=== PATIENT | male | born 1990 | race Caucasian/White ===

== ENCOUNTER 2020-01-24 21:53 | Emergency (ER) | payer OTHER ==
--- NOTE | 2020-01-24 23:08 | ED Physician Documentation ---
History of Present Illness - Stated complaint Stated Complaint: SWOLLEN FOOT/ - Chief complaint Chief Complaint: Trauma Ext - History obtained from History obtained from: Patient - Additonal information Additional information: Patient comes emergency department complaining of increasing right medial ankle pain and swelling since being hit over the medial malleolus with a skateboard about a week ago. Patient states it hurt initially, but he was able to walk on it. He did notice a "pop" when the injury occurred. He states that over the ensuing days, he did develop some swelling and pain across the medial and anterior aspects of the ankle. He has been able to walk, but states it does hurt. He states he has pain in the ankle at night and that it has kept him awake sometimes. He states this is the main reason he is here. 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 No other injuries and no other complaints at this time. Review of Systems Ten Systems: 10 systems reviewed and negative Constitutional: reports: Reviewed and negative Eyes: reports: Reviewed and negative Ears: reports: Reviewed and negative Nose: reports: Reviewed and negative Throat: reports: Reviewed and negative Cardiac: reports: Reviewed and negative Respiratory: reports: Reviewed and negative GI: reports: Reviewed and negative : reports: Reviewed and negative Skin: reports: Reviewed and negative Musculoskeletal: reports: Joint pain, Joint swelling Neurologic: reports: Reviewed and negative Psychiatric: reports: Reviewed and negative Endocrine: reports: Reviewed and negative Immunocompromised: reports: Reviewed and negative PD PAST MEDICAL HISTORY - Past Medical History Past Medical History: No - Past Surgical History Past Surgical History: No - Present Medications Home Medications: Ambulatory Orders Medication Instructions Recorded Confirmed No Known Home Medications 01/24/20 01/24/20 - Allergies Allergies/Adverse Reactions: Allergies Allergy/AdvReac Type Severity Reaction Status Date / Time No Known Drug Allergies Allergy Verified 01/24/20 22:03 - Social History Does the pt smoke?: No Smoking Status: Never smoker Does the pt drink ETOH?: Yes ETOH Use: Beer, Liquor Does the pt have substance abuse?: No - Immunizations Immunizations are current?: Yes - POLST Patient has POLST: No PD ED PE NORMAL - Vitals Vital signs reviewed: Yes - General General: Alert and oriented X 3, No acute distress - HEENT HEENT: Atraumatic, PERRL, EOMI, Moist mucous membranes - Neck Neck: Supple, no meningeal sign - Cardiac Cardiac: Strong equal pulses - Respiratory Respiratory: No respiratory distress - Derm Derm: Normal color, Warm and dry, No rash - Extremities Extremities: No deformity, Other (Moderate edema right medial ankle including medial malleolus. No palpable deformity. No gross contusion. Pulses intact. No point Tenderness over anterior or lateral ankle, or foot.) - Neuro Neuro: Alert and oriented X 3 - Psych Psych: Normal mood, Normal affect Results - Vitals Vitals: Vital Signs - 24 hr 01/24/20 01/24/20 01/24/20 22:00 22:05 23:17 Temperature 36.1 C L 36.1 C L 36.2 C L Heart Rate 70 70 71 Respiratory 16 16 16 Rate Blood Pressure 147/68 H 147/68 H 135/66 H O2 Saturation 97 97 100 Oxygen O2 Source Room air - Rads (name of study) R ankle xr Radiology: Final report received, EMP read indepedently, See rad report (STS, no fx) PD MEDICAL DECISION MAKING - ED course Complexity details: reviewed results, re-evaluated patient, considered differential, d/w patient ED course: I discussed with the patient that there is no obvious fracture on x-ray and that his bony alignment is good. The patient has been placed in an air splint and given crutches. It is possible that he is bruised the bone, although I would not expect swelling to go on for this long after the sort of injury. Given that the patient felt a "pop" during the injury, it is possible that he has sustained a sprain, though once again the medial ankle would be a less common location for this. I have advised patient to follow-up with his primary care physician in a week if he is not feeling any better for repeat x-rays. For now, he may weight- bear as tolerated with the ankle brace. Departure - Departure Disposition: 01 Home, Self Care Clinical Impression: Ankle injury Qualifiers: Encounter type: initial encounter Laterality: right Qualified Code(s): S99.911A - Unspecified injury of right ankle, initial encounter Condition: Stable Instructions: ED Sprain Ankle W X Ray Comments: At this time, your x-ray does not show any broken bones. The radiologist has read your x-ray as negative other than the swelling. You have most likely bruised the bone, but you may have also sprained the ankle, given that he felt a "pop" during the injury. This would be a more likely reason for the ongoing swelling. Given the above, it is best that you wear the air splint for at least the next week, or until your ankle is feeling completely better. Use the cr utches as needed. You may weight-bear on the right foot as much as you can tolerate. If you are not feeling better at all in the next week, please see your primary doctor to discuss repeat x-rays. Otherwise, please elevate the leg when not before possible. You may ice the ankle for 30 minutes at a time several times a day to help with the swelling. Please use ibuprofen and Tylenol as needed for pain. Forms: Activity restrictions Discharge Date/Time: 01/24/20 23:17
[2020-01-24 23:19] VITALS: BP 135/66
--- NOTE | 2020-01-25 08:26 | XRAY Report ---
PROCEDURE: Ankle 3 View RT INDICATIONS: injury/skateboarding a wk ago. Swollen TECHNIQUE: 3 views of the ankle were acquired. COMPARISON: None FINDINGS: Bones: No fractures or dislocations. Ankle mortise is normally aligned. No suspicious bony lesions . Soft tissues: No tibiotalar joint effusion. Achilles tendon appears normal. Soft tissue swelling i s noted and ligamentous can be excluded. IMPRESSION: No fracture. No osseous lesion. If there is continued clinical concern for pathology, th en repeat plain film radiographs (7-10 days) or advanced imaging (CT, MR, bone scan) should be consid ered for further evaluation. Reviewed by: Moraima Grajeda MD, PhD on 01/25/2020 8:25 AM PDT Approved by: Moraima Grajeda MD, PhD on 01/25/2020 8:25 AM PDT Station ID: [id number]
== END 2020-01-24 23:17 | disposition home or self-care (01) ==
LOC: ED 21:53
DX: S99.911A Unspecified injury of right ankle, initial encounter (principal); W22.8XXA Striking against or struck by other objects, initial encounter
CPT/HCPCS: 99283; 99284

== ENCOUNTER 2020-03-14 03:52 | Emergency (ER) | payer OTHER ==
--- NOTE | 2020-03-14 03:58 | ED Physician Documentation ---
PD HPI LOWER EXT INJURY - Stated complaint Stated Complaint: LT FOOT PX - History obtained from History obtained from: Patient - History of Present Illness PD HPI LOW EXT INJURY LOCATION: Left, Toe Timing - onset: How many days ago (2) Timing - details: Abrupt onset Pain level now: 7 Improved by: Rest Worsened by: Moving, Palpating Associated symptoms: Swelling, Discolored Similar symptoms before: Other (one previous episode that resolved prior to seeking medical attention although right great toe at that time) Recently seen: Not recently seen Review of Systems Constitutional: denies: Fever Musculoskeletal: reports: Extremity pain, Extremity swelling PD PAST MEDICAL HISTORY - Past Medical History Past Medical History: No - Past Surgical History Past Surgical History: No - Present Medications Home Medications: Ambulatory Orders Medication Instructions Recorded Confirmed Oxycodone HCl/Acetaminophen 1 - 2 each PO Q6H PRN #14 tablet 03/14/20 [Percocet 5-325 mg Tablet] predniSONE [Deltasone] 40 mg PO DAILY #8 tablet 03/14/20 - Allergies Allergies/Adverse Reactions: Allergies Allergy/AdvReac Type Severity Reaction Status Date / Time No Known Drug Allergies Allergy Verified 03/14/20 04:04 - Social History Does the pt smoke?: No Smoking Status: Never smoker Does the pt drink ETOH?: Yes Does the pt have substance abuse?: No - Immunizations Immunizations are current?: Yes - POLST Patient has POLST: No PD ED PE NORMAL - Vitals Vital signs reviewed: Yes - General General: Alert and oriented X 3, No acute distress, Well developed/nourished - Neuro Neuro: No motor deficit, No sensory deficit PD ED PE EXPANDED - Extremities Extremities: Other (minimal swelling, mild erythema, mildly increased warmth to touch (compared to right foot), and exquisite tenderness of left first TMT joint) Feet visual: 1 - rash (mild, poorly-marginated erythema), swelling, tenderness Results - Vitals Vitals: Oxygen O2 Source Room air PD MEDICAL DECISION MAKING - ED course Complexity details: considered differential, d/w patient Departure - Departure Disposition: 01 Home, Self Care Clinical Impression: Gout Qualifiers: Gout site: toe Gout etiology: unspecified cause Chronicity: acute Laterality: left Qualified Code(s): M10.9 - Gout, unspecified Condition: Good Instructions: ED Arthritis Gout, ED Diet Gout Follow-Up: [facility] [Provider Group] Prescriptions: predniSONE [Deltasone] 40 mg PO DAILY #8 tablet Oxycodone HCl/Acetaminophen [Percocet 5-325 mg Tablet] 1 - 2 each PO Q6H PRN #14 tablet PRN Reason: pain Comments: The prescriptions provided include two prescriptions for prednisone; one for 20mg tablets and the other is for 10mg tablets. The dosage should be clearly l abeled on the prescription bottles. Take as follows: START with the prescription for 20mg Prednisone. Take 2 tablets once per day. After completing the 20mg prednisone prescription, THE NEXT DAY start the 10mg prednisone taper according to the label instructions (4 tablets once per day for 3 days, then 2 tablets once per day for 2 days, then 1 tablet once per day for 2 days). Discharge Date/Time: 03/14/20 04:58
[2020-03-14] MEDS ORDERED: oxyCODONE/ACET 5/325 Prepack 4 PO STA (04:22)
[2020-03-14] MEDS ORDERED: predniSONE 20 MG TABLET PO STA (04:22)
[2020-03-14 05:00] VITALS: BP 138/68
== END 2020-03-14 04:58 | disposition home or self-care (01) ==
LOC: ED 03:52
DX: M10.9 Gout, unspecified (principal)
CPT/HCPCS: 99282; 99283; J7512

== ENCOUNTER 2021-02-21 16:42 | Emergency (ER) | payer OTHER ==
[2021-02-21 16:49] VITALS: BP 154/63
[2021-02-21 16:59] LABS: BASOPHILS # (AUTO) 0.1 10^3/uL (0.0-0.1); BASOPHILS % (AUTO) 0.7 %; EOSINOPHILS # (AUTO) 0.1 10^3/uL (0.0-0.7); HCT - HEMATOCRIT 46.8 % (42.0-52.0); HGB - HEMOGLOBIN 16.2 g/dL (14.0-18.0); LYMPHOCYTES # (AUTO) 3.3 10^3/uL (1.5-3.5); LYMPHOCYTES % (AUTO) 34.2 %; MEAN CORPUSCULAR HEMOGLOBIN 29.8 pg (27.0-31.0); MEAN CORPUSCULAR HGB CONC 34.6 g/dL (32.0-36.0); MEAN CORPUSCULAR VOLUME 86.2 fL (80.0-94.0); MEAN PLATELET VOLUME 10.6 fL (7.4-11.4); MONOCYTES # (AUTO) 0.8 10^3/uL (0.0-1.0); MONOCYTES % (AUTO) 7.8 %; NEUTROPHILS # (AUTO) 5.4 10^3/uL (1.5-6.6); PLT - PLATELET COUNT 246 10^3/uL (130-450); RED BLOOD COUNT 5.43 10^6/uL (4.70-6.10); RED CELL DISTRIBUTION WIDTH 12.2 % (12.0-15.0); WHITE BLOOD COUNT 9.6 x10^3/uL (4.8-10.8)
--- NOTE | 2021-02-21 17:04 | ED Physician Documentation ---
History of Present Illness - Stated complaint Stated Complaint: MALE - Chief complaint Chief Complaint: Abd Pain - Additonal information Additional information: 22-year-old male presents emergency department for evaluation of bloody stools. He reports that approximately 1 month ago he had very black stools for 1 to 2 days. However that quickly resolved. Over the last 2 days after he has defecated he has noticed blood streaking on his stools. The stool is brown however with blood streaks. He denies that he is having painful bowel movements or that he is constipated. He is having no fevers abdominal pain or weight loss. He reports that he has had bleeding in his stomach after taking ibuprofen in the past. Does not take ibuprofen now. He rarely drinks. Denies any illicit drug use. Review of Systems Constitutional: denies: Fever, Chills Eyes: reports: Reviewed and negative Nose: reports: Reviewed and negative Throat: reports: Reviewed and negative Cardiac: reports: Reviewed and negative Respiratory: reports: Reviewed and negative GI: reports: Abdominal Pain, Bloody / black stool. denies: Nausea, Vomiting, Constipation, Diarrhea : reports: Reviewed and negative PD PAST MEDICAL HISTORY - Past Surgical History Past Surgical History: No - Present Medications Home Medications: Ambulatory Orders Medication Instructions Recorded Confirmed No Known Home Medications 02/21/21 02/21/21 - Allergies Allergies/Adverse Reactions: Allergies Allergy/AdvReac Type Severity Reaction Status Date / Time No Known Drug Allergies Allergy Verified 02/21/21 16:46 - Social History Does the pt smoke?: No Smoking Status: Never smoker Does the pt drink ETOH?: Yes Does the pt have substance abuse?: No - Immunizations Immunizations are current?: Yes - POLST Patient has POLST: No PD ED PE NORMAL - General General: Alert and oriented X 3, No acute distress - HEENT HEENT: PERRL - Neck Neck: Supple, no meningeal sign - Cardiac Cardiac: RRR, No murmur - Respiratory Respiratory: Clear bilaterally - Male Male : Other (Chaperoned rectal exam. Brown blood in vault. Nontender. No obvious hemorrhoid or anal fissure noted.) - Derm Derm: Normal color, Warm and dry, No rash - Extremities Extremities: No deformity - Neuro Neuro: Alert and oriented X 3 Results - Vitals Vitals: Vital Signs - 24 hr 02/21/21 16:47 Temperature 36.6 C Heart Rate 56 L Respiratory 18 Rate Blood Pressure 154/63 H O2 Saturation 99 Oxygen O2 Source Room air - Labs Labs: Laboratory Tests 02/21/21 02/21/21 16:54 16:54 WBC 9.6 RBC 5.43 Hgb 16.2 Hct 46.8 MCV 86.2 MCH 29.8 MCHC 34.6 RDW 12.2 Plt Count 246 MPV 10.6 Neut # (Auto) 5.4 Lymph # (Auto) 3.3 [place] # (Auto) 0.8 Eos # (Auto) 0.1 Baso # (Auto) 0.1 Absolute Nucleated RBC 0.00 Nucleated RBC % 0.0 Sodium 141 Potassium 4.6 Chloride 101 Carbon Dioxide 31 Anion Gap 9.0 BUN 21 H Creatinine 1.3 H Estimated GFR (MDRD) 66 L Glucose 77 Calcium 9.8 Total Bilirubin 1.8 H AST 25 ALT 19 Alkaline Phosphatase 74 Total Protein 7.8 Albumin 4.6 Globulin 3.2 Albumin/Globulin Ratio 1.4 Lipase 52 H PD MEDICAL DECISION MAKING - ED course Complexity details: reviewed results, re-evaluated patient, considered differential, d/w patient ED course: This is a well-appearing 22-year-old male who presents the emergency department for evaluation of red streaked stools. He has no rectal pain no abdominal pain no fevers or vomiting. His screening labs are essentially unremarkable si gnificantly there is no anemia. I suspect that what he has is a bleeding internal hemorrhoid given his age and relatively few risk factors for more worrisome concerns such as cancer. He has however reported black stool about 1 month ago. Imaging was deferred given the lack of abdominal pain but I have advised patient to have close follow-up with [facility]. He may benefit from an EGD and/or a colonoscopy. Otherwise emergent return precautions discussed. Departure - Departure Disposition: 01 Home, Self Care Clinical Impression: Rectal bleeding Condition: Stable Record reviewed to determine appropriate education?: Yes Comments: Casey you were seen in the emergency department today for concerns of rectal bleeding. Your screening labs today do not show any worrisome findings and your abdominal exam was negative. When we did do a rectal exam we did notice brown stool. As we discussed at the bedside I suspect that what you have is a bleeding internal hemorrhoid. However it is important that you continue to discuss this ED visit with your primary care provider. You may benefit from referral for a colonoscopy if this remains a problem. If at any point you have fainting episodes, have stool that looks like grape jelly, is tarry, or have severe abdominal pain and vomiting then please return to the ER for second evaluation.
[2021-02-21 17:13] LABS: ALBUMIN 4.6 g/dL (3.2-5.5); ALBUMIN/GLOBULIN RATIO 1.4 (1.0-2.2); BILIRUBIN,TOTAL 1.8 mg/dL (0.2-1.0); CALCIUM 9.8 mg/dL (8.5-10.3); CREATININE 1.3 mg/dL (0.6-1.2); POTASSIUM 4.6 mmol/L (3.5-5.0); TOTAL PROTEIN 7.8 g/dL (6.7-8.2)
== END 2021-02-21 18:12 | disposition home or self-care (01) ==
LOC: ED 16:42
DX: K62.5 Hemorrhage of anus and rectum (principal)
CPT/HCPCS: 36415; 80053; 83690; 85025; 99282; 99283

== ENCOUNTER 2021-06-10 20:44 | Emergency (ER) | payer OTHER ==
[2021-06-10 20:50] VITALS: BP 139/81
--- NOTE | 2021-06-10 21:00 | ED Physician Documentation ---
History of Present Illness - Stated complaint Stated Complaint: MALE - Chief complaint Chief Complaint: General - History obtained from History obtained from: Patient - Additonal information Additional information: The patient comes to the emergency department with chief complaint of painful lump on left testicle. He states that he first noticed it yesterday and has never had this before. He denies any direct trauma. No difficulty with urination. No penile discharge. No lesions. No bulging when he lifts heavy things. He states he did a weight workout today and there was no change in the lump. Patient denies any fevers or chills. No redness or other change of his scrotal skin. No abdominal pain. No other complaints at this time. The patient is otherwise healthy. Review of Systems Ten Systems: 10 systems reviewed and negative Constitutional: reports: Reviewed and negative Eyes: reports: Reviewed and negative Ears: reports: Reviewed and negative Nose: reports: Reviewed and negative Throat: reports: Reviewed and negative Cardiac: reports: Reviewed and negative Respiratory: reports: Reviewed and negative GI: reports: Reviewed and negative : reports: Testicular pain, Testicular mass Skin: reports: Reviewed and negative Musculoskeletal: reports: Reviewed and negative Neurologic: reports: Reviewed and negative Psychiatric: reports: Reviewed and negative Endocrine: reports: Reviewed and negative Immunocompromised: reports: Reviewed and negative PD PAST MEDICAL HISTORY - Past Surgical History Past Surgical History: No - Present Medications Home Medications: Ambulatory Orders Medication Instructions Recorded Confirmed No Known Home Medications 02/21/21 06/10/21 - Allergies Allergies/Adverse Reactions: Allergies Allergy/AdvReac Type Severity Reaction Status Date / Time No Known Drug Allergies Allergy Verified 06/10/21 20:50 - Social History Does the pt smoke?: No Smoking Status: Never smoker Does the pt drink ETOH?: Yes Does the pt have substance abuse?: No - Immunizations Immunizations are current?: Yes - POLST Patient has POLST: No PD ED PE NORMAL - Vitals Vital signs reviewed: Yes - General General: Alert and oriented X 3, No acute distress, Well developed/nourished - HEENT HEENT: Atraumatic, PERRL, EOMI, Moist mucous membranes - Neck Neck: Supple, no meningeal sign - Respiratory Respiratory: No respiratory distress - Abdomen Abdomen: Soft, Non tender, Non distended - Male Male : Other (Normal male genitalia, circumcised. Mild tenderness palpation of left testicle with Inferior soft tissue mass approximately 1 cm diameter. Mass is soft. No scrotal skin changes. No fluctuance. Right side benign.) - Derm Derm: Normal color, Warm and dry, No rash - Extremities Extremities: No deformity - Neuro Neuro: Alert and oriented X 3 - Psych Psych: Normal mood, Normal affect Results - Vitals Vitals: Oxygen O2 Source Room air - Rads (name of study) US testicles Radiology: Final report received, EMP read indepedently, See rad report PD MEDICAL DECISION MAKING - ED course Complexity details: reviewed results, re-evaluated patient, considered differe shawna, d/w patient ED course: The patient was evaluated with an ultrasound in the emergency department. This showed a small hydrocele and small cysts, but otherwise unremarkable. We have discussed symptomatic management at home, as well as the usual indications for return. Departure - Departure Disposition: 01 Home, Self Care Clinical Impression: Testicular pain, left Condition: Stable Instructions: ED Testicular Pain UKO Comments: The ultrasound of your testicles actually looks quite good. You may have a small enlarged vein versus a small fluid collection down near the area of pain but otherwise, there is no evidence of tumor or anything else unusual. This will most likely resolve on its own without further intervention. Please follow-up with your primary doctor as needed. You may take ibuprofen and wear supportive underwear to help with the discomfort. Discharge Date/Time: 06/10/21 22:20
--- NOTE | 2021-06-10 22:37 | Ultrasound Report ---
PROCEDURE: Testicle w/Doppler Limited INDICATIONS: painful lump L testicle TECHNIQUE: Real-time scanning was performed of the scrotum and testicles, with image documentation. Color and p ulse Doppler interrogation was performed of both testicles. COMPARISON: None. FINDINGS: Right: Testicle is normal in size at 4.5 x 1.7 x 2 point cm, and homogenous in echotexture. Epididy mis is normal in overall size and morphology. No hydrocele or varicoceles. Overlying scrotal skin i s normal in thickness. Left: Testicle is normal in size at 4.3 x 1.8 x 2.8 cm, and homogeneous in echotexture. Epididymis is normal in overall size and morphology. 5 a 2 x 3 mm and 4 x 2 x 2 mm left epididymal head cysts. Minimal left-sided hydrocele. No varicoceles. Overlying scrotal skin is normal in thickness. Doppler: Color and pulse Doppler demonstrate normal and symmetric arterial flow in both testicles. IMPRESSION: 1. No evidence of testicular torsion. 2. Minimal left-sided hydrocele. 3. Left epididymal cysts. 4. No abnormal intratesticular masses. Reviewed by: Moraima Grajeda MD, PhD on 06/10/2021 10:36 PM PDT Approved by: Moraima Grajeda MD, PhD on 06/10/2021 10:36 PM PDT Station ID: [id number]
== END 2021-06-10 22:20 | disposition home or self-care (01) ==
LOC: ED 20:44
DX: N43.3 Hydrocele, unspecified (principal); N50.3 Cyst of epididymis
CPT/HCPCS: 93976; 99282; 99284

== ENCOUNTER 2021-08-02 23:57 | Emergency (ER) | payer OTHER ==
--- NOTE | 2021-08-03 00:40 | XRAY Report ---
PROCEDURE: Knee 3 View RT INDICATIONS: c/o R knee injury/pain from squatting down. TECHNIQUE: 3 views of the right knee were acquired. COMPARISON: None. FINDINGS: Bones: No fractures or dislocations. No suspicious bony lesions. Soft tissues: No joint effusion. No suspicious soft tissue calcifications. IMPRESSION: 1. No fracture or dislocation. Reviewed by: Galen Harrington MD on 08/03/2021 12:39 AM PDT Approved by: Galen Harrington MD on 08/03/2021 12:39 AM PDT Station ID: [id number]
--- NOTE | 2021-08-03 01:59 | ED Physician Documentation ---
PD HPI LOWER EXT INJURY - Stated complaint Stated Complaint: RT KNEE PX - Chief complaint Chief Complaint: Trauma Ext - History obtained from History obtained from: Patient - History of Present Illness PD HPI LOW EXT INJURY LOCATION: Right, Knee Timing - onset: How many days ago (4) Timing - details: Abrupt onset Improved by: Rest Worsened by: Moving Associated symptoms: No: Weakness, Numbness, Tingling, Swelling, Discolored Similar symptoms before: Has not had sx before Recently seen: Not recently seen - Additional information Additional information: 4 days ago, patient was trying to stand back up from a squat, lost his balance causing him to fall forwardly in an awkward position involving sudden hyperflexion of the right knee with the majority of his weight on that leg; there was sudden onset right knee pain, lateral aspect, as well as a crunching sound/sensation. He initially had pain and swelling as well as decreased ROM due to pain, although he notes steady improvement in swelling and ROM and decreasing pain. He feels that he is back to full-weight bearing. Review of Systems Musculoskeletal: reports: Joint pain, Pain with weight bearing (minimal (had been more significant for 1-2 days after injury)). denies: Extremity swelling Neurologic: denies: Focal weakness, Numbness PD PAST MEDICAL HISTORY - Past Medical History Past Medical History: No - Past Surgical History Past Surgical History: No - Present Medications Home Medications: Ambulatory Orders Medication Instructions Recorded Confirmed No Known Home Medications 02/21/21 08/03/21 - Allergies Allergies/Adverse Reactions: Allergies Allergy/AdvReac Type Severity Reaction Status Date / Time No Known Drug Allergies Allergy Verified 08/03/21 00:04 - Social History Does the pt smoke?: No Smoking Status: Never smoker Does the pt drink ETOH?: Yes Does the pt have substance abuse?: No - Immunizations Immunizations are current?: Yes - POLST Patient has POLST: No PD ED PE NORMAL - Vitals Vital signs reviewed: Yes - General General: Alert and oriented X 3, No acute distress, Well developed/nourished - Extremities Extremities: No deformity, Normal ROM s pain, No edema, Other (minimal TTP along lateral aspect of right knee. ) Results - Vitals Vitals: Oxygen O2 Source Room air - Rads (name of study) right knee xrays Radiology: Prelim report reviewed, See rad report PD MEDICAL DECISION MAKING - ED course Complexity details: reviewed results, re-evaluated patient, considered differential, d/w patient ED course: Patient sustained right knee hyperflexion injury 4 days ago which has steadily improved and nearly resolved. His chief concern is whether there is an injury to internal structure such as ligament or meniscal injury; he is increasing his activity and wanted to have this assessed before he resume strenuous activity such as working out or running. I explained that such injuries cannot be ruled out by plain-film xrays, but that it is increasingly unlikely that there is any ligament or meniscal injury if he is (as he has been) able to gradually resume regular and, eventually, strenous activity without exacerbation or recurrence of symptoms (pain, swelling). If he finds increasing activity is aggravating the symptoms, he is to follow up with primary care provider for reevaluation. Departure - Departure Disposition: 01 Home, Self Care Clinical Impression: Right knee sprain Condition: Good Instructions: ED Sprain Knee Follow-Up: PRASANTH Pimentel [Provider Group] Comments: The xrays did not show any fracture/break. As we discussed, other injuries such as injuries to ligaments, tendons, or cartilage, do not show on xrays. Based on the exam tonight (you have no significant tenderness and you have excellent range of motion), and your description of improving symptoms, I think it is unlikely you have any serious injury. See your primary care provider in the next week if your symptoms have not completely resolved Discharge Date/Time: 08/03/21 02:16
[2021-08-03 02:13] VITALS: BP 135/60
== END 2021-08-03 02:16 | disposition home or self-care (01) ==
LOC: ED 23:57
DX: S83.91XA Sprain of unspecified site of right knee, initial encounter (principal); X50.1XXA Overexertion from prolonged static or awkward postures, initial encounter; X50.9XXA Other and unspecified overexertion or strenuous movements or postures, initial encounter; Y93.89 Activity, other specified
CPT/HCPCS: 99281; 99283

== ENCOUNTER 2021-08-07 23:22 | Emergency (ER) | payer OTHER ==
--- NOTE | 2021-08-08 00:11 | ED Physician Documentation ---
History of Present Illness - Stated complaint Stated Complaint: HIGH HEART RATE - Chief complaint Chief Complaint: General - History obtained from History obtained from: Patient - History of Present Illness Timing: How many hours ago (1) Pain level max: 0 Pain level now: 0 Improved by: no ameliorating factors (has resolved spontaneously) Worsened by: no exacerbating factors - Additonal information Additional information: c/o rapid palpitations, sudden onset approximately 1 hour [employer] while at rest at home. Patient took supplements with ingredients that included caffeine. He took these immediately prior to a work-out, and then took another supplement after f inishing the work-out. However, symptom onset was at least 2 hours after taking the post-workout supplement. He has taken the same supplements before without adverse effect. He describes sudden onset rapid palpitations lasting 30-45 minutes without other symptoms (denies chest pain, dyspnea, lightheadedness); he denies similar symptoms in the past and symptoms suddenly and completely spontaneously resolved Review of Systems Constitutional: reports: Reviewed and negative Cardiac: reports: Palpitations. denies: Chest pain / pressure, Pedal edema, Calf pain Respiratory: reports: Reviewed and negative GI: reports: Reviewed and negative Musculoskeletal: denies: Extremity swelling PD PAST MEDICAL HISTORY - Past Medical History Past Medical History: No - Past Surgical History Past Surgical History: No - Present Medications Home Medications: Ambulatory Orders Medication Instructions Recorded Confirmed No Known Home Medications 02/21/21 08/07/21 - Allergies Allergies/Adverse Reactions: Allergies Allergy/AdvReac Type Severity Reaction Status Date / Time No Known Drug Allergies Allergy Verified 08/07/21 23:38 - Social History Does the pt smoke?: No Smoking Status: Never smoker Does the pt drink ETOH?: Yes ETOH Use: Liquor Does the pt have substance abuse?: No - Immunizations Immunizations are current?: Yes - POLST Patient has POLST: No PD ED PE NORMAL - Vitals Vital signs reviewed: Yes - General General: Alert and oriented X 3, No acute distress, Well developed/nourished - HEENT HEENT: Moist mucous membranes - Neck Neck: Supple, no meningeal sign - Cardiac Cardiac: RRR, No murmur, No gallop, No rub - Respiratory Respiratory: No respiratory distress, Clear bilaterally - Extremities Extremities: No edema Results - Vitals Vitals: Oxygen O2 Source Room air PD MEDICAL DECISION MAKING - ED course Complexity details: reviewed old records, considered differential, d/w patient ED course: c/o approximately 30 minutes of rapid palpitations without other symptoms, onset 1 hour ago and resolved completely. He is in NAD and regular rate and rhythm on monitor and auscultation. Emergent testing not indicated at this time. Discussed with patient that differential includes some paroxysmal (episodic) cardiac rate/rhythm problems which would potentially be detected on holter or zio monitoring which his PMD can arrange if he has recurrent, paroxysmal symptoms. I also instructed him to try to take a pulse to get heart rate (15 sec then multiply by four) if symptoms reoccur, as the rate might aid in paring down differential as well as indicate further testing (180 bpm, for example, would imply SVT and would likely benefit from outpatient holter/zio monitor). If symptoms reoccur and persist, he is to return to ED. Departure - Departure Disposition: 01 Home, Self Care Clinical Impression: Palpitations Condition: Good Instructions: ED Palpitations Follow-Up: PRASANTH Pimentel [Provider Group] Discharge Date/Time: 08/08/21 00:30
[2021-08-08 00:30] VITALS: BP 110/72
== END 2021-08-08 00:30 | disposition home or self-care (01) ==
LOC: ED 23:22
DX: R00.2 Palpitations (principal)
CPT/HCPCS: 99281; 99282